=== PATIENT | male | born 1940 | race Caucasian/White ===

== ENCOUNTER 2019-03-29 20:17 | Observation (INO) ==
[2019-03-29 20:55] LABS: Basophils # 0.1 K/mm3 (0-0.2); Basophils % 0.2 % (0.1-2.0); Eosinophils # 0.3 K/mm3 (0.0-0.4); Hematocrit 44.4 % (42.0-52.0); Hemoglobin 15.1 g/dL (14.1-18.0); Lymphocytes # 1.4 K/mm3 (0.7-4.5); Lymphocytes % 4.5 % (10-50); Mean Corpuscular HGB Conc 34.1 g/dL (31.8-35.4); Mean Corpuscular Volume 87.8 fl (80-94); Mean Platelet Volume 8.8 fl (7.4-10.4); Monocytes # 1.6 K/mm3 (0.1-1.0); Monocytes % 4.8 % (1.7-9.3); Neutrophils # 28.9 K/mm3 (1.8-7.8); Neutrophils % 89.5 % (37.0-80.0); Platelet Count 205 K/mm3 (142-424); Red Blood Count 5.06 M/mm3 (4.60-6.20); Red Cell Distribution Width 13.5 % (11.5-17.5)
[2019-03-29 20:56] LABS: White Blood Count 32.3 K/mm3 (4.8-10.8)
--- NOTE | 2019-03-29 20:56 | Emergency Department Note ---
ED Disposition Clinical Impression: Severe sepsis with acute organ dysfunction, Acute delirium, Dizziness CAP (community acquired pneumonia) Qualifiers: Laterality: right Lung location: lower lobe of lung Qualified Code(s): J18.9 - Pneumonia, unspecified organism Cholelithiasis Qualifiers: Cholelithiasis location: gallbladder Cholecystitis presence: without cholec ystitis Biliary obstruction: without biliary obstruction Qualified Code(s): K80.20 - Calculus of gallbladder without cholecystitis without obstruction Disposition: Admitted As Inpatient Condition on Discharge: Good Instructions: DI for Syncope in Adults (Fainting), DI for Syncope in Children (Fainting) Referrals: Provider,Referral, [Primary Care Provider] - - Critical Care Critical Care Time: No Attestation: On 03/29/19, the high probability of a clinically significant, sudden or life threatening deterioration of the following system(s) required my full and direct attention, intervention and personal management. The time I documented below is in addition to time spent performing reported procedures but includes the following listed in this critical care notation. Medical Decision Making - Medical Records Medical records reviewed: Yes: I reviewed the patient's medical records. - Hari Inquiry Pt receiving controlled substance: No Vital Signs: 03/29/19 20:17 03/29/19 20:55 03/29/19 22:30 Temperature 99.0 F 99.4 F Temperature Source Oral Oral Pulse Rate [Orthostatic Lying Left Radial] 103 H Pulse Rate [Orthostatic Sitting Right Radial] 110 H Pulse Rate [Orthostatic Standing Left Radial] 122 H Pulse Rate [Right Radial] 110 H 112 H Respiratory Rate 18 Blood Pressure [Orthostatic Lying Right Arm] 165/86 H Blood Pressure [Orthostatic Sitting Right Arm] 153/82 H Blood Pressure [Orthostatic Standing Right Arm] 161/82 H Blood Pressure [Right Arm] 166/83 H 135/74 Blood Pressure Mean [Right Arm] 110 94 Blood Pressure Source [Right Arm] Automatic Cuff Blood Pressure Position [Right Arm] Sitting 02 Sat by Pulse Oximetry 93 L 91 L Oxygen Delivery Method Room Air Room Air - Lab Data Lab results reviewed: Yes: I reviewed the patient's lab results. Lab Results 03/29/19 20:35: WBC 32.3 H* D, RBC 5.06, Hgb 15.1, Hct 44.4, MCV 87.8, MCH 29.9, MCHC 34.1, RDW 13.5, Plt Count 205, MPV 8.8, Neut % (Auto) 89.5 H, Lymph % (Auto) 4.5 L, [place] % (Auto) 4.8, Eos % (Auto) 1.0, Baso % (Auto) 0.2, Neut # (Auto) 28.9 H, Lymph # (Auto) 1.4, [place] # (Auto) 1.6 H, Eos # (Auto) 0.3, Baso # (Auto) 0.1, Total Counted 100, Neutrophils % (Manual) 80 H, Band Neutrophils % 9.0 H, Lymphocytes % (Manual) 7 L, Monocytes % (Manual) 4, Platelet Estimate Normal, RBC Morphology Normal, ESR Cancelled 03/29/19 20:35: Sodium 136, Potassium 3.8, Chloride 100, Carbon Dioxide 23 D, Anion Gap 16.8 H, BUN 21 H, Creatinine 1.04, Estimated Creat Clear 81, Estimated GFR 69, Est GFR ( Amer) 84, Glucose 220 H, Calcium 8.5, Total Bilirubin 2.4 H, AST 90 H D, ALT 55 D, Alkaline Phosphatase 85, Troponin I < 0.02, C- Reactive Protein 15.8 H, Total Protein 7.1, Albumin 3.1 L, Globulin 4.0 H, Albumin/Globulin Ratio 0.8 L 03/29/19 20:35: Lactate 1.9 03/29/19 22:50: Urine Color Yellow, Urine Appearance Clear, Urine pH 6.0, Ur Specific [place] 1.020, Urine Protein Trace, Urine Glucose (UA) 1+, Urine Ketones Negative, Urine Blood Trace-i, Urine Nitrate Negative, Urine Bilirubin Negative, Urine Urobilinogen 1.0, Ur Leukocyte Esterase Negative, Urine RBC 3-5, Amorphous Sediment Trace Result diagrams: 03/29/19 20:35 03/29/19 20:35 Orders (Tests/Meds): ED MEDICATIONS Generic Name Dose Route Start Last Admin Trade Name Freq PRN Reason Stop Dose Admin Sodium Chloride 1,000 mls @ 125 mls/hr 03/29/19 20:45 03/29/19 20:46 Sod Chlor 0.9% 1000ml Bag IV 04/28/19 20:44 125 mls/hr .Q8H ASHLYN Administration Azithromycin 500 mg/ Sodium 250 mls @ 250 mls/hr 03/29/19 22:45 03/29/19 22:33 Chloride IV 04/12/19 22:44 250 mls/hr Q24H ASHLYN Administration Protocol Ceftriaxone Sodium 1 gm/ 50 mls @ 100 mls/hr 03/29/19 22:45 03/29/19 22:33 Sodium Chloride IV 04/12/19 22:44 100 mls/hr Q24H ASHLYN Administration Protocol Discontinued Medications Generic Name Dose Route Start Last Admin Trade Name Melony SNYDER Reason Stop Dose Admin Ioversol 75 ml 03/29/19 21:37 03/29/19 21:41 Rad-Optiray 350 100ml Vial IV 03/29/19 21:38 75 ml ONCE ONE Administration Protocol Sodium Chloride 10 ml 03/29/19 21:37 03/29/19 21:41 Rad-Saline Flush 10ml Syringe IV 03/29/19 21:38 10 ml ONCE ONE Administration ORDERS Category Date Time Status CT abdomen pelvis w con Stat Cat Scan 03/29/19 21:[address] head/brain wo con Stat Cat Scan 03/29/19 20:43 Taken XR chest AP Stat Exams 03/29/19 20:59 Taken Troponin I Q3H Lab 03/29/19 23:45 Ordered Troponin I Q3H Lab 03/30/19 02:45 Ordered Blood Culture Stat Micro 03/29/19 20:45 Received - Radiology Data #1 Image(s): Chest Image Reviewed: Yes I reviewed the patient's radiology image Preliminary Findings: Abnormal (rt lower ) - CT Data CT Scan: Head, Abdomen, Pelvis Time Received: 22:[address] Reviewed: Yes: I have viewed the radiologist's interpretation Preliminary Findings: Abnormal (see report ) - ECG Data Tracing #1 Normal Sinus Rhythm: Yes Ischemic changes: non-specific ST-T wave changes - Physician Consults Physician Consulted: kapil Reason -: Admission Dizzy HPI - General Chief Complaint: Syncope Stated Complaint: syncope Time Seen by Provider: 03/29/19 20:55 Mode of Arrival: EMS Source of Information: Patient, EMS, Medical Record Limitations: No Limitations Description of Symptoms (Recalled from ER Triage Doc. by RN): syncopal episode tonight while standing from a sitting position. patient states after he stood up that his dizziness went away and he feels better now. denies chest pain. denies falling - History of Present Illness HPI Narrative: pt was seen in the ed about 2 days ago -and on abx - pt with confusion and had dizzyness tonight w/o syncope - pt is poor historian -no chest pain MD complaint: dizziness Onset (ago): hour(s) Timing: sudden onset Description: lightheadedness History of similar episodes: No History of trauma: No Severity: moderate Associated symptoms: denies other symptoms - Related Data Allergies Allergy/AdvReac Type Severity Reaction Status Date / Time No Known Allergies Allergy Verified 03/29/19 20:23 [facility] History - Hepatitis A Screen Drug use history?: No High risk sexual behaviors?: No History of sexually transmitted infection?: No Currently employed?: No Childcare worker?: No Do you have indoor plumbing?: Yes Do you have electricity?: Yes Attestation statement:: This patient has been screened for Hepatitis A risk factors. I have reviewed the patient's past medical history: Yes Medical History: Denies:: Diabetes Mellitus Type 1, Diabetes Mellitus Type 2 - Social History Smoking Status: Unknown if ever smoked Alcohol Intake: never Occupational Status: retired ROS Obtained: Yes All systems reviewed & no additional complaints - Constitutional Constitutional: Denies fever(s) - Eyes Eyes: Denies change in vision - ENT Ears, Nose, Mouth, and Throat: Denies sore throat - Cardiovascular Cardiovascular: Denies chest pain at rest - Respiratory Respiratory: Yes cough, Yes non-productive cough - Gastrointestinal Gastrointestingal: Denies: vomiting - Genitourinary Male Genitourinary: Denies hematuria - Integumentary/Breasts Skin/Breast: Denies rash - Neurologic Neurologic: Reports as per HPI, Denies abnormal speech, Reports confusion, Reports dizziness, Denies headache(s), Denies seizure-like activity Physical Exam - General General appearance: alert - Head Head exam: normocephalic - Eye Eye exam: Present: PERRL, EOMI - ENT ENT exam: Present: mucous membranes dry - Neck Neck exam: Present: trachea midline - Respiratory Respiratory exam: Present: other (rhonchi). Absent: respiratory distress - Cardiovascular Cardiovascular exam: Present: regular rate, systolic murmur, +S4 - Abdominal Exam Abdominal exam: Present: soft - Extremities Exam Extremities exam: Absent: calf tenderness - Neurological Exam Neurological exam: Present: alert, CN II-XII intact. Absent: motor sensory deficit - Skin Skin exam: Absent: rash
[2019-03-29 21:01] LABS: Alanine Aminotransferase 55 U/L (12-78); Albumin Level 3.1 gm/dL (3.4-5.0); Albumin/Globulin Ratio 0.8 (1.1-1.8); Alkaline Phosphatase 85 U/L (46-116); Anion Gap 16.8 mEq/L (5-15); Aspartate Amino Transferase 90 U/L (15-37); Bilirubin,Total 2.4 mg/dL (0.2-1.0); Blood Urea Nitrogen 21 mg/dL (7-18); Calcium 8.5 mg/dL (8.5-10.1); Carbon Dioxide 23 mmol/L (21.0-32.0); Chloride 100 mmol/L (98-107); Glucose 220 mg/dL (74-106); Sodium 136 mmol/L (136-145); Total Protein,Serum 7.1 gm/dL (6.4-8.2)
[2019-03-29 21:03] LABS: C-Reactive Protein 15.8 mg/dL (0.0-0.9)
[2019-03-29 21:10] LABS: Lymphocytes % 7 % (10-50); Monocytes % 4 % (2-9); Neutrophils % 80 % (42-76); RBC Morphology Normal; Total Cells Counted 100
[2019-03-29 22:55] LABS: Microscopic, Urine URINE MICROSCOPIC (MICROSCOPIC)
[2019-03-29 22:57] LABS: Appearance,Urine CLEAR (Clear); Bilirubin,Urine Negative (Negative); Blood, Urine TRACE-I (Negative); Color,Urine YELLOW (Yellow); Glucose,Urine (UA) 1+ (Negative); Ketones,Urine Negative (Negative); Leukocyte Esterase,Urine Negative (Negative); Protein,Urine TRACE (Negative)
[2019-03-29 23:03] LABS: Amorphous Sediment,Urine Trace /lpf
[2019-03-30 03:45] LABS: Basophils % 0.1 % (0.1-2.0); Eosinophils # 0.1 K/mm3 (0.0-0.4); Eosinophils % 0.2 % (0.1-12.0); Hematocrit 40.2 % (42.0-52.0); Hemoglobin 13.3 g/dL (14.1-18.0); Lymphocytes # 2.1 K/mm3 (0.7-4.5); Lymphocytes % 6.5 % (10-50); Mean Corpuscular Volume 86.7 fl (80-94); Mean Platelet Volume 8.5 fl (7.4-10.4); Monocytes # 2.6 K/mm3 (0.1-1.0); Monocytes % 8.2 % (1.7-9.3); Neutrophils # 26.7 K/mm3 (1.8-7.8); Platelet Count 220 K/mm3 (142-424); Red Blood Count 4.64 M/mm3 (4.60-6.20); Red Cell Distribution Width 14.1 % (11.5-17.5); White Blood Count 31.4 K/mm3 (4.8-10.8)
[2019-03-30 03:51] LABS: Anion Gap 13.6 mEq/L (5-15); Blood Urea Nitrogen 19 mg/dL (7-18); Calcium 7.8 mg/dL (8.5-10.1); Carbon Dioxide 24 mmol/L (21.0-32.0); Chloride 104 mmol/L (98-107); Sodium 138 mmol/L (136-145)
[2019-03-30 03:53] LABS: Glucose 151 mg/dL (74-106)
--- NOTE | 2019-03-30 07:54 | History & Physical Report ---
*Admission Date: 03/29/19 *Chief complaint: SOA, AMS *History of present illness: Mr. Mehta is a 78-year-old male who presented to the ER yesterday because of cough, shortness of breath, fever and some altered mental status. Of note he had presented to the ER earlier this week where he was diagnosed with upper respiratory infection and discharged home. He states that he has become more ill since initial presentation. Cough is somewhat productive. Had fever, dyspnea, and reports feeling confused.. On initial work-up he was noted to have elevated white count greater than 30,000, fever, and have some organ dysfunction meeting criteria for severe sepsis. X-ray concerning for pneumonia. Admitted f or antibiotics and fluids. On assessment this morning he denies chest pain, nausea, vomiting. States he is breathing better. Sitting in bedside chair and is more alert and oriented to person place and time. Overall showing good improvement. [facility] History I have reviewed the patient's past medical history: Yes Medical History: Reports:: Coronary Artery Disease Denies:: Diabetes Mellitus Type 1, Diabetes Mellitus Type 2 *Have you ever received a pneumonia vaccine?: Yes *Have you received a flu vaccine this season?: Yes Laterality Cases: Left: Total Knee Replacement - *Social History Educational Level: Attended High School Smoking Status: Unknown if ever smoked Alcohol Intake: former Alcohol Intake Frequency:: holidays/special occasions only *Occupational Status:: retired Housing: house Household Members: spouse *Travel in the last 8 weeks: None Family Hx:: No significant family history Review of Systems - Review of Systems Review of systems:: pertinent systems reviewed and negative unless documented below - *Neurologic Reports confusion, Reports dizziness, Denies abnormal speech, Denies headache(s), Denies seizure-like activity Meds Home Medications Medication Instructions Recorded Confirmed Type Aspirin 81 mg PO DAILY 03/30/19 03/30/19 History Metoprolol Tartrate [Lopressor 50 mg PO BID 03/30/19 03/30/19 History 50mg tablet] Allergies Allergy/AdvReac Type Severity Reaction Status Date / Time No Known Allergies Allergy Verified 03/29/19 20:23 Exam Vital signs and Labs for Last 24 Hours: Temp Pulse Resp BP Pulse Ox 98.4 F 92 H 18 115/60 93 L 03/30/19 04:00 03/30/19 04:00 03/30/19 04:00 03/30/19 04:00 03/30/19 04:00 Laboratory Results - last 24 hr 03/29/19 20:35: WBC 32.3 H* D, RBC 5.06, Hgb 15.1, Hct 44.4, MCV 87.8, MCH 29.9, MCHC 34.1, RDW 13.5, Plt Count 205, MPV 8.8, Neut % (Auto) 89.5 H, Lymph % (Auto) 4.5 L, [place] % (Auto) 4.8, Eos % (Auto) 1.0, Baso % (Auto) 0.2, Neut # (Auto) 28.9 H, Lymph # (Auto) 1.4, [place] # (Auto) 1.6 H, Eos # (Auto) 0.3, Baso # (Auto) 0.1, Total Counted 100, Neutrophils % (Manual) 80 H, Band Neutrophils % 9.0 H, Lymphocytes % (Manual) 7 L, Monocytes % (Manual) 4, Platelet Estimate Normal, RBC Morphology Normal, ESR Cancelled 03/29/19 20:35: Sodium 136, Potassium 3.8, Chloride 100, Carbon Dioxide 23 D, Anion Gap 16.8 H, BUN 21 H, Creatinine 1.04, Estimated Creat Clear 81, Estimated GFR 69, Est GFR ( Amer) 84, Glucose 220 H, Calcium 8.5, Total Bilirubin 2.4 H, AST 90 H D, ALT 55 D, Alkaline Phosphatase 85, Troponin I < 0.02, C- Reactive Protein 15.8 H, Total Protein 7.1, Albumin 3.1 L, Globulin 4.0 H, Albumin/Globulin Ratio 0.8 L 03/29/19 20:35: Lactate 1.9 03/29/19 22:50: Urine Color Yellow, Urine Appearance Clear, Urine pH 6.0, Ur Specific [place] 1.020, Urine Protein Trace, Urine Glucose (UA) 1+, Urine Ketones Negative, Urine Blood Trace-i, Urine Nitrate Negative, Urine Bilirubin Negative, Urine Urobilinogen 1.0, Ur Leukocyte Esterase Negative, Urine RBC 3-5, Amorphous Sediment Trace 03/29/19 23:40: Troponin I < 0.02 03/30/19 03:20: WBC 31.4 H*, RBC 4.64, Hgb 13.3 L D, Hct 40.2 L, MCV 86.7, MCH 28.6, MCHC 33.0, RDW 14.1, Plt Count 220, MPV 8.5, Neut % (Auto) 85.0 H, Lymph % (Auto) 6.5 L, [place] % (Auto) 8.2, Eos % (Auto) 0.2, Baso % (Auto) 0.1, Neut # (Auto) 26.7 H, Lymph # (Auto) 2.1, [place] # (Auto) 2.6 H, Eos # (Auto) 0.1, Baso # (Auto) 0.0 03/30/19 03:20: Sodium 138, Potassium 3.6, Chloride 104, Carbon Dioxide 24, A nion Gap 13.6, BUN 19 H, Creatinine 0.92, Estimated Creat Clear 85, Estimated GFR 80, Est GFR ( Amer) 97, Glucose 151 H D, Calcium 7.8 L, Magnesium 1.6, Troponin I < 0.02 I & O for Last 24 hours: Intake & Output 03/27/19 03/28/19 03/29/19 03/30/19 23:59 23:59 23:59 23:59 Intake Total 422 / 422 Balance 422 / 422 Weight 95.254 kg 95.1 kg - Constitutional no acute distress - *Routine HEENT Exam Head: Present: normocephalic Eye: Present: EOMI, PERRL ENT: Present: mucous membranes moist - *Routine Neck Exam Present: supple. Absent: lymphadenopathy - *Routine Respiratory Exam Absent: accessory muscle use Comments: Air movement bilaterally, faint crackles right lower lobe. No rhonchi or wheeze - *Routine Cardiovascular Exam Present: RRR - *Routine Abdominal Exam Present: soft, normoactive bowel sounds. Absent: tenderness - *Routine Extremities Exam Absent: cyanosis, clubbing, edema - *Routine Skin Exam Present: warm. Absent: rash - *Routine Neurological Exam Present: alert, oriented X3 Assessment and Plan (1) Acute delirium Current visit: Yes Status: Resolved Category: Medical Code(s): R41.0 - Disorientation, unspecified (2) CAP (community acquired pneumonia) Current visit: Yes Status: Acute Qualifiers: Laterality: right Lung location: lower lobe of lung Qualified Code(s): J18.9 - Pneumonia, unspecified organism Category: Medical Code(s): J18.9 - Pneumonia, unspecified organism PSI:106, curb-65: 3 on admission. Justifying inpatient admission. Continue IV antibiotics, monitor until morning. If continues to be stable tomorrow, transition oral antibiotics at that time. At this time still does not have oxygen requirement. (3) Dizziness Current visit: Yes Status: Resolved Category: Medical Code(s): R42 - Dizziness and giddiness (4) Severe sepsis with acute organ dysfunction Current visit: Yes Status: Acute Category: Medical Code(s): A41.9 - Sepsis, unspecified organism; R65.20 - Severe sepsis without septic shock Severe sepsis with leukocytosis, tachycardia, source of infection with pneumonia, organ dysfunction with abnormal liver enzymes. Admitted with initiation of protocol. Cultures pending, broad-spectrum antibiotics initiated, fluid resuscitation performed. Showing improvement this morning. We will continue to monitor with repeat labs (5) Atypical pneumonia Current visit: No Status: Acute Category: Medical Code(s): J18.9 - Pneumonia, unspecified organism - Assessment and plan all Dx Assessment and Plan for all problems:: 78-year-old male with sepsis and pneumonia. Continue IV antibiotics at this time. Will monitor for the next 24 hours. If continues to showed effervescence of symptoms, will transition oral antibiotics possible discharge tomorrow. Severely ill on admission with a PSI of 106, class IV with elevated mortality r ate. Regular diet as ordered. Ambulating as tolerated. Full code.
--- NOTE | 2019-03-30 11:28 | Pharmacy Consult Notes ---
[facility] Pharmacy VTE Monitoring - Patient Demographics Admission date: 03/29/19 Report Date: 03/30/19 Time: 11:28 Allergies/Adverse Reactions: Patient Allergies No Known Allergies Allergy (Verified 03/29/19 20:23) Height: 2.01 m Weight: 95.1 kg Patient Problems: Current Active Problems Severe sepsis with acute organ dysfunction (Acute) CAP (community acquired pneumonia) (Acute) Acute delirium (Acute) Cholelithiasis (Acute) Dizziness (Acute) - VTE Risk Labs: VTE Related Lab Results Hgb 13.3 g/dL (14.1-18.0) L D 03/30/19 03:20 Hct 40.2 % (42.0-52.0) L 03/30/19 03:20 Plt Count 220 K/mm3 (142-424) 03/30/19 03:20 BUN 19 mg/dL (7-18) H 03/30/19 03:20 Creatinine 0.92 mg/dL (0.70-1.30) 03/30/19 03:20 Estimated Creat Clear 85 mL/min (50-200) 03/30/19 03:20 Was VTE Risk Assessment Performed: Yes VTE Score: 3 VTE Risk Level: Low Risk - Prophylaxis VTE Prophylaxis Ordered?: Yes Types of VTE Prophylaxis: TEDS Knee High Location of Applied Device: Bilateral Lower Extremeties - VTE Diagnosis Confirmed Treatment or plan recommended: Continue Current Treatment
--- NOTE | 2019-03-31 00:27 | Discharge Summary ---
General - General Admission date:: 03/30/19 Discharge date: 03/31/19 HPI HPI: Mr. Mehta is a 78-year-old male who presented to the ER yesterday because of cough, shortness of breath, fever and some altered mental status. Of note he had presented to the ER earlier this week where he was diagnosed with upper respiratory infection and discharged home. He states that he has become more ill since initial presentation. Cough is somewhat productive. Had fever, dyspnea, and reports feeling confused.. On initial work-up he was noted to have elevated white count greater than 30,000, fever, and have some organ dysfunction meeting criteria for severe sepsis. X-ray concerning for pneumonia. Admitted for antibiotics and fluids. On assessment this morning he denies chest pain, nausea, vomiting. States he is breathing better. Sitting in bedside chair and is more alert and oriented to person place and time. Overall showing good improvement. Hospital Course Hospital Course: Patient was admitted with sepsis and elevated pneumonia severity index score. Initiated on broad-spectrum antibiotics and treated with IV fluids and oxygen. Responded very briskly with effervescence of symptoms. Feeling much better on morning after admission. Continue to monitor for improvement in white cell count as his leukocytosis was marketed. Showed significant continued response to antibiotics with essential return to baseline within 2 days per patient's report. Afebrile during admission. Denied nausea vomiting, chest pain, confusion. Stated he was back to baseline with his confusion on day of discharge. Transition oral antibiotics to complete treatment for community- acquired pneumonia. Medically stable for discharge home Objective Vital signs: Temp Pulse Resp BP Pulse Ox 97.9 F 89 16 126/79 99 03/31/19 00:00 03/31/19 00:00 03/31/19 00:00 03/31/19 00:00 03/31/19 00:00 Narrative: - Constitutional no acute distress - *Routine HEENT Exam Head: Present: normocephalic Eye: Present: EOMI, PERRL ENT: Present: mucous membranes moist - *Routine Neck Exam Present: supple. Absent: lymphadenopathy - *Routine Respiratory Exam Absent: accessory muscle use Comments: Air movement bilaterally, faint crackles right lower lobe. No rhonchi or wheeze - *Routine Cardiovascular Exam Present: RRR - *Routine Abdominal Exam Present: soft, normoactive bowel sounds. Absent: tenderness - *Routine Extremities Exam Absent: cyanosis, clubbing, edema - *Routine Skin Exam Present: warm. Absent: rash - *Routine Neurological Exam Present: alert, oriented X3 Results Labs on day of discharge: Labs from last 24 hours 03/30/19 03/30/19 03:20 03:20 WBC 31.4 H* RBC 4.64 Hgb 13.3 L D Hct 40.2 L MCV 86.7 MCH 28.6 MCHC 33.0 RDW 14.1 Plt Count 220 MPV 8.5 Neut % (Auto) 85.0 H Lymph % (Auto) 6.5 L [place] % (Auto) 8.2 Eos % (Auto) 0.2 Baso % (Auto) 0.1 Neut # (Auto) 26.7 H Lymph # (Auto) 2.1 [place] # (Auto) 2.6 H Eos # (Auto) 0.1 Baso # (Auto) 0.0 Sodium 138 Potassium 3.6 Chloride 104 Carbon Dioxide 24 Anion Gap 13.6 BUN 19 H Creatinine 0.92 Estimated Creat Clear 85 Estimated GFR 80 Est GFR ( Amer) 97 Glucose 151 H D Calcium 7.8 L Magnesium 1.6 Troponin I < 0.02 DS: Diagnosis - Discharge Diagnosis (1) Acute delirium Status: Resolved (2) CAP (community acquired pneumonia) Status: Acute (3) Dizziness Status: Resolved (4) Severe sepsis with acute organ dysfunction Status: Resolved (5) Atypical pneumonia Status: Acute Discharge Plan - Patient Discharge Instructions ACTIVITY: Continue current activity DIET: continue same diet Patient Instructions: Pneumonia-Adult, Gallstones, Sepsis, Delirium, Pneumococc al Vaccine, DI for Pneumonia -- Adult, DI for Gallstones, DI for Sepsis -- Adult - Follow up Plan Follow up with: Newton De La Torre MD [Staff Physician] - Disposition: Home, Self-Detention Medications: Home Medications Medication Instructions Recorded Confirmed Type Aspirin 81 mg PO DAILY 03/30/19 03/30/19 History Metoprolol Tartrate [Lopressor 50 mg PO BID 03/30/19 03/30/19 History 50mg tablet] Cefdinir [Omnicef 300mg Capsule] 300 mg PO BID 4 Days #8 cap 03/31/19 Rx Prescriptions/Medication Reconciliation: New Cefdinir [Omnicef 300mg Capsule] 300 mg PO BID 4 Days #8 cap Continued Aspirin 81 mg PO DAILY Metoprolol Tartrate [Lopressor 50mg tablet] 50 mg PO BID - Problem Reconciliation Problems Reviewed?: Yes
[2019-03-31 07:51] LABS: Basophils % 0.2 % (0.1-2.0); Eosinophils # 0.1 K/mm3 (0.0-0.4); Eosinophils % 0.6 % (0.1-12.0); Hematocrit 40.2 % (42.0-52.0); Hemoglobin 13.4 g/dL (14.1-18.0); Lymphocytes # 1.8 K/mm3 (0.7-4.5); Lymphocytes % 9.1 % (10-50); Mean Corpuscular HGB Conc 33.2 g/dL (31.8-35.4); Mean Corpuscular Volume 86.7 fl (80-94); Mean Platelet Volume 8.8 fl (7.4-10.4); Monocytes # 1.3 K/mm3 (0.1-1.0); Monocytes % 6.3 % (1.7-9.3); Neutrophils # 16.9 K/mm3 (1.8-7.8); Neutrophils % 83.8 % (37.0-80.0); Platelet Count 246 K/mm3 (142-424); Red Blood Count 4.64 M/mm3 (4.60-6.20); Red Cell Distribution Width 13.9 % (11.5-17.5); White Blood Count 20.2 K/mm3 (4.8-10.8)
[2019-03-31 08:02] LABS: Albumin Level 2.3 gm/dL (3.4-5.0); Albumin/Globulin Ratio 0.6 (1.1-1.8); Anion Gap 13.3 mEq/L (5-15); Calcium 7.9 mg/dL (8.5-10.1); Globulin 3.6 gm/dl (1.3-3.2); Total Protein,Serum 5.9 gm/dL (6.4-8.2)
[2019-03-31 08:39] LABS: Eosinophils % 1 % (0-3); Lymphocytes % 14 % (10-50); Monocytes % 8 % (2-9); Neutrophils % 77 % (42-76); RBC Morphology Normal; Total Cells Counted 100
--- NOTE | 2019-04-01 18:28 | Electrocardiograph Report ---
APPROVED REPORT Exam: Resting ECG HR:104 bpm ECG Measurements Heart Rate 104 AXES MS 190 P 20 QRSd 80 QRS 23 QT 338 T26 QTc 444 <Conclusion> Sinus tachycardia with fusion complexes and PAC'S Otherwise normal ECG Electronically signed by : Russell Sal, 04/01/2019 18:28:35
== END 2019-03-31 12:46 | disposition home or self-care (01) ==
LOC: 2ND 20:17 → ER 20:17 → 2ND 23:50
PROVIDERS: ADMIT Internal Medicine Adolescent Medicine; ATTEND Internal Medicine Adolescent Medicine
CPT/HCPCS: 36415; 70450; 71010; 71045; 74177; 80048; 80053; 81001; 83605; 83735; 84484; 85007; 85025; 86140; 87040; 93005; 96365; 96367; 99285; G0378; J0456; Q9967

== ENCOUNTER 2020-02-13 13:38 | Emergency (ER) | payer MEDICARE, SELFPAY ==
[2020-02-13] VITALS (8 sets, daily range): BP systolic 131–159; BP diastolic 82–92; PULSE 64–79; RESP 16–20; TEMP 36.6; O2SAT 94–98; BMI 27.1
--- NOTE | 2020-02-13 13:49 | CT_ITS ---
PROCEDURE: CT HEAD/BRAIN WO CON CLINICAL INDICATION: ams Altered mental status, altered level of consciousness, confusion, disorientation, recent fall COMPARISON: CT CT HEAD/BRAIN WO CON from 03/29/2019 TECHNIQUE: Axial images obtained. All CT scans at the facility use one or more dose reduction, viz: automated exposure control, ma/kV adjustment per patient size (including targeted exams where dose is matched to indication, i.e. head), or iterative reconstruction technique. FINDINGS: There is a subdural fluid collection on the left extending from the anterior aspect of the frontal lobe to the parietal occipital junction area. This measures 13 cm in AP dimension and up to 3 cm in transverse dimension mostly with internal fluid density but with multiple septations. Scattered hyperdensity along the periphery of the collection and involving the septations. This may represent a complex subdural hematoma with summary bleeding. No blood fluid levels however are evident. There is moderate midline shift of structures to the right by 13 mm. There is mild prominence of the right lateral ventricle suggesting developing mild hydrocephalus. This measures 9 cm cephalad caudad. There is some sub fall seen herniation left to right. No obvious transtentorial herniation at this time. No calvarial fracture. Incidental note is made of nondisplaced fractures involving the anterior arch of C1 bilaterally IMPRESSION: Complex left-sided subdural collection as described above causing moderate mass effect and moderate midline shift to the right by 13 mm with subfalcine herniation [id number]. This may represent a subdural empyema versus a complex subdural hematoma. Suspect mild right-sided hydrocephalus. Nondisplaced anterior arch of C1 fracture. Dr. Flores notified of the above findings by telephone 02/13/2020 at 3:10 p.m. Dictated by: Jeremy Zapata MD 02/13/2020 15:31 Jeremy Zapata MD in [place] 02/13/2020 15:31
--- NOTE | 2020-02-13 13:50 | XR_ITS ---
PROCEDURE: XR CHEST PORTABLE CLINICAL HISTORY: ams Altered mental status, altered level of consciousness, confusion, disorientation COMPARISON: CR XR CHEST PORTABLE from 03/27/2019 CR XR CHEST 2V from 03/27/2019 CR XR CHEST AP from 03/29/2019 FINDINGS: Mild cardiomegaly and mild prominence of the mediastinum not significantly changed. The lungs are clear without infiltrates, suspicious nodules, or pleural effusions. No acute bony abnormalities. IMPRESSION: No change with no acute finding Dictated by: Jeremy Zapata MD 02/13/2020 15:55 Jeremy Zapata MD in [facility] 02/13/2020 15:55
[2020-02-13 14:20] LABS: Chloride 102 mmol/L (98-107); Potassium 3.7 mmoL/L (3.5-5.1); Sodium 139 mmol/L (136-145)
[2020-02-13 14:22] LABS: Basophils # 0.1 K/mm3 (0-0.2); Basophils % 0.4 % (0.1-2.0); Eosinophils # 0.2 K/mm3 (0.0-0.4); Eosinophils % 1.4 % (0.1-12.0); Hemoglobin 17.4 g/dL (14.1-18.0); Lymphocytes # 2.6 K/mm3 (0.7-4.5); Lymphocytes % 19.5 % (10-50); Mean Corpuscular HGB Conc 35.4 g/dL (31.8-35.4); Mean Corpuscular Hemoglobin 29.7 pg (27.0-31.2); Mean Corpuscular Volume 83.9 fl (80-94); Mean Platelet Volume 7.6 fl (7.4-10.4); Monocytes # 0.9 K/mm3 (0.1-1.0); Monocytes % 6.9 % (1.7-9.3); Neutrophils # 9.4 K/mm3 (1.8-7.8); Neutrophils % 71.8 % (37.0-80.0); Platelet Count 291 K/mm3 (142-424); Red Blood Count 5.84 M/mm3 (4.60-6.20); Red Cell Distribution Width 13.7 % (11.5-17.5); White Blood Count 13.1 K/mm3 (4.8-10.8)
[2020-02-13 14:23] LABS: Alanine Aminotransferase 28 U/L (12-78); Albumin Level 4.5 g/dl (3.5-5.0); Albumin/Globulin Ratio 1.2 (1.1-1.8); Alkaline Phosphatase 89 U/L (38-126); Anion Gap 11.7 mEq/L (5-15); Aspartate Amino Transferase 25 U/L (17-59); Bilirubin,Total 1.5 mg/dl (0.2-1.3); Blood Urea Nitrogen 13 mg/dl (9-20); Carbon Dioxide 29 mmol/L (22.0-30.0); Creatinine Clearance Estimated 79 mL/min (50-200); Estimated Glomerular Filt Rate 94 ml/min (>60); GFR (African American) 113 ML/MIN (>60); Globulin 3.8 g/dL (1.3-3.2); Total Protein,Serum 8.3 g/dl (6.3-8.2)
[2020-02-13 14:24] LABS: Calcium 9.9 mg/dl (8.4-10.2); Glucose 115 mg/dl (74-100)
--- NOTE | 2020-02-13 14:30 | PC.NURSE ---
PT INCONTINENT OF URINE, [facility] CHANGED FOUND BED BUG IN SHEETS. PT CHANGED INTO HOSPITAL GOWN, CLEANED. BELONGINGS PLACED IN BLUE BAGS AND GIVEN TO FAMILY WHO TOOK BELONGINGS TO CAR
[2020-02-13 14:36] LABS: Microscopic, Urine URINE MICROSCOPIC (MICROSCOPIC)
[2020-02-13 14:40] LABS: Appearance,Urine CLEAR (Clear); Bilirubin,Urine Negative (Negative); Blood, Urine TRACE-I (Negative); Color,Urine YELLOW (Yellow); Glucose,Urine (UA) Negative (Negative); Ketones,Urine Negative (Negative); Leukocyte Esterase,Urine TRACE (Negative); Nitrate,Urine POSITIVE (Negative); Protein,Urine Negative (Negative); Specific Gravity, Urine 1.025 (1.005-1.030); Urobilinogen,Urine 0.2 EU/dl (0.2)
--- NOTE | 2020-02-13 14:47 | PC.NURSE ---
pt gone to CT
[2020-02-13 14:53] LABS: Bacteria,Urine 2+ /lpf
--- NOTE | 2020-02-13 15:15 | PC.NURSE ---
Dr Zapata called spoke with Dr Flores
--- NOTE | 2020-02-13 15:22 | CT_ITS ---
PROCEDURE: CT CERVICAL SPINE WO CON CLINICAL INDICATION: c spine fracture C1 arch fracture. Injury with pain, abnormal head CT demonstrating C-spine fracture. COMPARISON: CT CT CERVICAL SPINE WO CON from 03/27/2019 TECHNIQUE: Axial images obtained with sagittal and coronal reformats. All CT scans at the facility use one or more dose reduction, viz: automated exposure control, ma/kV adjustment per patient size (including targeted exams where dose is matched to indication, i.e. head), or iterative reconstruction technique. Axial spiral CT scanning performed of the cervical spine beginning at the base of the skull and continuing to the upper T-spine. 3-D multiplanar reconstruction with 3-D manipulation of volumetric data set in image rendering was completed by the radiologist and/or technologist with the supervision of the radiologist on independent workstation. FINDINGS: There is a nondisplaced fracture involving the right and left anterior arch of C1 extending into the lateral masses anteriorly. There is some callus formation along the anterior aspect of the fracture fragments. These fractures are nondisplaced. There is a ring fracture involving the posterior arch of C1 on the left. No evidence of C2 fracture. No significant displacement of the fracture fragments. The C2-C3: Mild degenerative disc disease. Small central disc protrusion. C3-C4: Degenerate disc disease with endplate and uncovertebral and facet hypertrophy with left lateral recess and foraminal narrowing. C4-C5: Right-sided facet and uncovertebral hypertrophy with right-sided foraminal narrowing. C5-C6: Mild bilateral foraminal narrowing. C6-C7: Mild bilateral foraminal narrowing from facet and uncovertebral hypertrophy. C7-T1: Unremarkable. IMPRESSION: 1. Healing anterior arch fracture of C1 involving both right and left aspect of the arch anteriorly extending into the lateral masses. There is a nondisplaced fracture involving the posterior arch of C1 as well on the left. 2. Multilevel cervical spondylosis as described above. Dictated by: Jeremy Zapata MD 02/13/2020 16:14 Jeremy Zapata MD in [facility] 02/13/2020 16:14
--- NOTE | 2020-02-13 15:51 | [facility].EDAMS ---
ED Disposition Clinical Impression: Subdural hematoma Cervical spine fracture Qualifiers: Cervical vertebra fracture level: C1 Fracture type: closed Fracture morphology: burst- stable Disposition: Xfer Short-Term Hosp Condition on Discharge: Serious Instructions: DI for Altered Mental Status Referrals: Roz Akers APRN [Primary Care Provider] - - Critical Care Critical Care Time: No Attestation: On 02/13/20, the high probability of a clinically significant, sudden or life threatening deterioration of the following system(s) required my full and direct attention, intervention and personal management. The time I documented below is in addition to time spent performing reported procedures but includes the following listed in this critical care notation. Medical Decision Making - Medical Records Medical records reviewed: Yes: I reviewed the patient's medical records. MR Comment: Outside records reviewed demonstrating history of subarachnoid but no subdural. - Hari Inquiry Pt receiving controlled substance: No Vital Signs: 02/13/20 13:40 02/13/20 14:10 02/13/20 15:14 Pulse Rate [Radial] 75 68 64 Respiratory Rate 16 20 18 Blood Pressure [Right Arm] 143/85 H 155/92 H 131/87 Blood Pressure Mean [Right Arm] 104 113 101 Blood Pressure Source [Right Arm] Automatic Cuff Automatic Cuff Blood Pressure Position [Right Arm] Sitting Sitting Sitting 02 Sat by Pulse Oximetry 98 96 94 L Oxygen Delivery Method Room Air Room Air Room Air - Lab Data Lab Results 02/13/20 14:00: WBC 13.1 H, RBC 5.84, Hgb 17.4, Hct 49.0, MCV 83.9, MCH 29.7, MCHC 35.4, RDW 13.7, Plt Count 291, MPV 7.6, Neut % (Auto) 71.8, Lymph % (Auto) 19.5, [place] % (Auto) 6.9, Eos % (Auto) 1.4, Baso % (Auto) 0.4, Neut # (Auto) 9.4 H, Lymph # (Auto) 2.6, [place] # (Auto) 0.9, Eos # (Auto) 0.2, Baso # (Auto) 0.1 02/13/20 14:00: Sodium 139, Potassium 3.7, Chloride 102, Carbon Dioxide 29, Anion Gap 11.7, BUN 13, Creatinine 0.80, Estimated Creat Clear 79, Estimated GFR 94, Est GFR ( Amer) 113, Glucose 115 H, Calcium 9.9, Total Bilirubin 1.5 H, AST 25, ALT 28, Alkaline Phosphatase 89, Total Protein 8.3 H, Albumin 4.5, Globulin 3.8 H, Albumin/Globulin Ratio 1.2 02/13/20 14:15: Urine Color Yellow, Urine Appearance Clear, Urine pH 6.0, Ur Specific Ucon 1.025, Urine Protein Negative, Urine Glucose (UA) Negative, Urine Ketones Negative, Urine Blood Trace-i, Urine Nitrate Positive, Urine Bilirubin Negative, Urine Urobilinogen 0.2, Ur Leukocyte Esterase Trace, Urine RBC 3-5, Urine WBC 10-20, Ur Squamous Epith Cells 3-5, Urine Bacteria 2+, Hyaline Casts 3-5 Result diagrams: 02/13/20 14:00 02/13/20 14:00 Orders (Tests/Meds): ORDERS Category Date Time Status CT cervical spine wo con Stat Cat Scan 02/13/20 15:22 Ordered XR chest portable Stat Exams 02/13/20 13:50 Taken Urine Culture Stat Micro 02/13/20 14:15 Received - Radiology Data #1 Image(s): Chest Image Reviewed: Yes I reviewed the patient's radiology image Preliminary Findings: Normal/NAD - CT Data CT Scan: Head, C-Spine Time Received: 15:[address] Reviewed: Yes: I discussed the CT results w/the radiologist Preliminary Findings: Abnormal Findings Narrative: Left-sided subdural hematoma with septation and midline shift. C1 fracture Medical Decision Narrative: 79-year-old male with a history of trauma in the recent past who presents with altered mental status and weakness of the right side after a fall 2 days ago. Patient is having difficulty with word salad and has increased tone on the right as well as weakness. CT head performed demonstrating significant size subdural hematoma with septations difficult midline shift. Anterior arch fracture which on review of outside images is a known fracture but unclear if this was made worse by not wearing a c-collar in the fall. Chest x-ray is unremarkable laboratory data demonstrates no acute actionable results. Patient will be tr
--- NOTE | 2020-02-13 16:00 | PC.NURSE ---
family at bedside updated of pt's plan of care
--- NOTE | 2020-02-13 16:17 | PC.NURSE ---
[facility] notified of pt transfer to [facility]
--- NOTE | 2020-02-13 16:39 | PC.NURSE ---
report called to [facility], p[facility]on potts
== END 2020-02-13 17:49 | disposition short-term general hospital (02) ==
PROVIDERS: Emergency Provider Student in an Organized Health Care Education/Training Program; PCP Nurse Practitioner
DX: S06.5X0A Traumatic subdural hemorrhage without loss of consciousness, initial encounter (principal); W01.0XXA Fall on same level from slipping, tripping and stumbling without subsequent striking against object, initial encounter; Y92.019 Unspecified place in single-family (private) house as the place of occurrence of the external cause; I25.10 Atherosclerotic heart disease of native coronary artery without angina pectoris
CPT/HCPCS: 70450; 71045; 72125; 80053; 81001; 85025; 87086; 87088; 87186; 99284